=== PATIENT | female | born 1950 | race Caucasian/White ===

== ENCOUNTER → 2021-04-03 | Outpatient (CLI) | payer OTHER ==
[~2021-04-03] MED LIST: OMEPRAZOLE40 MG PO; TOPROL XL25 MG PO
== END ==
LOC: KOH-I 10:30
DX: Z09 Encounter for follow-up examination after completed treatment for conditions other than malignant neoplasm (principal); Z87.891 Personal history of nicotine dependence; R91.8 Other nonspecific abnormal finding of lung field
CPT/HCPCS: 71271

== ENCOUNTER 2021-07-06 13:37 | Emergency (ER) | payer OTHER ==
[2021-07-06 15:10] LABS: HEMOGLOBIN 12.1 gm/dl (12.3-15.3); RED BLOOD COUNT 4.07 M/UL (4.00-5.10)
[2021-07-06 15:33] LABS: BUN/CREATININE RATIO 17 (0-10)
[2021-07-06] MEDS ORDERED: CATAPRES 0.1MG0.1 MG PO (16:17)
== END 2021-07-06 17:55 | disposition home or self-care (01) ==
LOC: ER1 13:37
PROVIDERS: Physician Assistant
DX: I10 Essential (primary) hypertension (principal); R51.9 Headache, unspecified; Z20.822 Contact with and (suspected) exposure to COVID-19; E10.9 Type 1 diabetes mellitus without complications; J44.9 Chronic obstructive pulmonary disease, unspecified; Z79.899 Other long term (current) drug therapy
CPT/HCPCS: 70450; 71045; 80053; 81001; 82550; 82553; 83874; 84484; 85025; 87086; 93005; 96374; 99284; U0002

== ENCOUNTER → 2021-07-28 | Outpatient (CLI) | payer OTHER ==
[~2021-07-28] MED LIST changes: +CATAPRES 0.1MG0.1 MG PO
== END ==
LOC: HEART 5 07:57
DX: I10 Essential (primary) hypertension (principal); R06.02 Shortness of breath; Z79.899 Other long term (current) drug therapy; I08.3 Combined rheumatic disorders of mitral, aortic and tricuspid valves; I27.20 Pulmonary hypertension, unspecified
CPT/HCPCS: 78452; 93306; A9502; J2785

== ENCOUNTER → 2021-08-06 | Outpatient (CLI) | payer OTHER ==
[2021-08-06 12:55] LABS: HEMOGLOBIN 12.2 gm/dl (12.3-15.3); RED BLOOD COUNT 4.25 M/UL (4.00-5.10); WHITE BLOOD COUNT 9.5 K/UL (4.5-11.0)
== END ==
LOC: LAB 11:58
PROVIDERS: Internal Medicine Interventional Cardiology
DX: R94.39 Abnormal result of other cardiovascular function study (principal); F09 Unspecified mental disorder due to known physiological condition; F32.A Depression, unspecified; R41.3 Other amnesia; F41.9 Anxiety disorder, unspecified; R06.02 Shortness of breath; J44.9 Chronic obstructive pulmonary disease, unspecified
CPT/HCPCS: 80048; 85025; 85610; 85730; 93005

== ENCOUNTER → 2021-08-17 | Outpatient (CLI) | payer OTHER ==
[~2021-08-17] MED LIST changes: +ARICEPT10 MG PO; +ASPIRIN CHEWABL81 MG PO; +COZAAR100 MG PO; +GLUCOPHAGE XR500 M1 PO; +NAMENDA10 MG PO; +NORVASC5 MG PO; +NUEDEXTA 20-101 EACH PO; +PRAVASTATIN SOD20 MG PO; +SPIRIVA RESPIMAT4 GM INH; +SYMBICORT 16010.2 GM INH; +VITAMIN D21250 MCG PO; +WELLBUTRIN XL300 M1 PO
== END ==
LOC: CATH 08:51
DX: R94.39 Abnormal result of other cardiovascular function study (principal); I20.8 Other forms of angina pectoris; I10 Essential (primary) hypertension; J44.9 Chronic obstructive pulmonary disease, unspecified; R60.9 Edema, unspecified; Z20.822 Contact with and (suspected) exposure to COVID-19
CPT/HCPCS: 82962; 99152; C1769; C1887; C1894; J1644; J2250; J7030; Q9965